=== PATIENT | female | born 1970 | race Caucasian/White ===

== ENCOUNTER → 2016-12-05 | Outpatient (CLI) | payer OTHER ==
--- NOTE | 2016-12-05 15:33 | KCIC ---
MRI study of the right knee without contrast Clinical indications: Right knee injury doing squat 2 weeks ago. Pain is located medially. The patient felt and heard a pop at the time. TECHNIQUE: Noncontrast MRI sequences of the right knee were performed in all 3 planes. COMPARISON: None available. FINDINGS: The posterior cruciate ligament is intact. The anterior cruciate ligament is intact. The quadriceps and patellar tendons are intact. No articular surface tear of the medial or lateral meniscus is seen. The medial collateral ligament is intact and no meniscocapsular separation is seen. The lateral collateral ligament complex and iliotibial band and popliteus tendon are intact. No posterior lateral corner injury is seen. No bone contusion or fracture or marrow infiltrative process is seen. There are degenerative cystic changes of the posterior aspect of the tibial epiphysis and underneath the medial tibial spine at the attachment of the anterior cruciate ligament. There is chondromalacia of the articular cartilage of the medial femoral condyle. There is an articular cartilage defect. The transverse dimension is 7 mm and the AP dimension is 16 mm. In addition, focal osteochondral abnormality of the posterior nonweightbearing portion of the medial femoral condyle is seen. No significant degenerative spurring of the medial tibiofemoral joint compartment is seen. No focal osteochondral abnormality of the lateral tibiofemoral joint compartment is seen. The patella is normally aligned. There is moderate chondromalacia patellae involving the medial and lateral patellar facets and apex of the patella with mild subchondral bone marrow edema. There is severe chondromalacia of the lateral portion of the trochlear groove with thinning of the articular cartilage and subchondral cyst formation bone marrow edema. There is mild degenerative spurring of the patellofemoral joint compartment. The medial and lateral retinacular ligaments are intact. Posterior periarticular cyst is seen just lateral to the midline. The cyst measures 38 mm in greatest dimension. There is another posterior particular cyst seen more superiorly just posterior to the distal femoral metaphysis which measures 15 mm. No Ewing's cyst is evident. A small knee joint effusion is seen. No loose osteochondral body is evident. No muscle edema is seen. Impression: no meniscal or ligament or tendon tear is seen. 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 Posterior para-articular ganglion cysts. No Ewing's cyst is seen. Small knee joint effusion. Electronically signed by: Dylan Ramirez MD (12/05/2016 3:29 PM) [id number]
== END | disposition home or self-care (01) ==
LOC: KCIC MRI 14:25
PROVIDERS: ATTEND Orthopaedic Surgery
DX: M25.461 Effusion, right knee (principal); M94.261 Chondromalacia, right knee; M67.461 Ganglion, right knee
CPT/HCPCS: 73721